=== PATIENT | female | born 1950 | race Caucasian/White ===

== ENCOUNTER 2022-12-18 02:10 | Outpatient (CLI) | payer MEDICARE, SELFPAY ==
--- NOTE | 2022-12-18 07:30 | DI.CT_ITS ---
Exam(s) CT CHEST WO EXAM: CT CHEST WO CLINICAL HISTORY: CHRONIC COUGH, R05.3. TECHNIQUE: Multi planar reconstructions were performed. CONTRAST MATERIAL: None COMPARISON: No exams were available for comparison FINDINGS: CHEST: LUNGS: There is scarring in both lung apices. There is bronchial thickening and surrounding infiltra te in the basal segments of the right lower lobe. There is a tiny amount of ipsilateral pleural flui d. There is relative sparing of the superior segment of the right lower lobe. No significant findin gs in the right upper lobe there is sparing of the right middle lobe. No findings in the left upper lobe and lingular segment. There is a 2 millimeters subpleural nodule in the lateral basal segment o f the left lower lobe. Mild increased benign-appearing markings subpleural location in the posterior basal segment of the left lower lobe. There is no pleural effusion on the left side. There are no focal findings in trachea and mainstem bronchi. MEDIASTINUM: There is no obvious hilar nor mediastinal adenopathy. No obvious axillary adenopathy CARDIAC: Heart size is normal. There is no pericardial effusion.There is an aortic valve TAVR in conor ce. Maximum diameter of the ascending thoracic aorta is 3.2 cm. There is a possible average right s ubclavian artery here although this is difficult to determine without IV contrast. VISUALIZED UPPER ABDOMEN:No obvious findings OSSEOUS: No significant osseous lesions.. IMPRESSION: 1. Right lower lobe infiltrate with very small right pleural effusion. 2. No left lung infiltrate although there is a tiny 2 millimeters subpleural nodule evident in the la teral basal segment of the left lower lobe. No left pleural effusion. 3. No obvious intrathoracic adenopathy evident on this noninfused study. 4. Aortic valve TAVR. Thoracic aorta above this level does not appear enlarged. RADIATION DOSE DELIVERED: 352.34mGy.cm Total DLP DATA REPOSITORY: All CT scans at this facility are submitted to the National Radiology Data Registry (NRDR) Dose Index Registry (DIR) with the [employer] ([employer]). RADIATION OPTIMIZATION: All CT scans at this facility use at least one of these dose optimization te chniques: automated exposure control; mA and/or kV adjustment per patient size (includes targeted exa ms where dose is matched to clinical indication); or iterative reconstruction.
== END 2022-12-18 02:30 ==
PROVIDERS: Visit Provider Nurse Practitioner
DX: R05.3 Chronic cough (principal)
CPT/HCPCS: 71250